=== PATIENT | male | born 1980 | race Caucasian/White ===

== ENCOUNTER → 2017-04-27 | Outpatient (CLI) | payer MEDICAID | LOC: FCPNEURO 21:00 | PROVIDERS: ATTEND Student in an Organized Health Care Education/Training Program | DX: G47.33 Obstructive sleep apnea (adult) (pediatric) (principal); G47.31 Primary central sleep apnea; R09.02 Hypoxemia ==

== ENCOUNTER 2017-07-11 14:22 | Emergency (ER) | payer MEDICAID ==
[2017-07-11 14:35] VITALS: BP 127/90; PULSE 84; RESP 18; TEMP 97.9; O2SAT 95
--- NOTE | 2017-07-11 15:10 | EDPHY ---
H & P Stated Complaint: R Knee Pain x 3 months Time Seen by Provider: 07/11/17 15:00 HPI/ROS: CHIEF COMPLAINT: Right knee pain HISTORY OF PRESENT ILLNESS: The patient is a 37-year-old healthy man who comes to the emergency department complaining of chronic knee pain that is been nagging him over the last 6 months. He states that it is intermittent. He states that it was severe while he was driving here but then resolved once he got to the emergency department waiting room. He is now ambulate that difficulty. He states that it occasionally locks. He does not remember any specific injury or trauma. He denies any swelling or erythema. The no other joint pains. He states that he was seen at an urgent care 2 days ago and they performed x-rays that were read as negative. No low back pain or hip pain. REVIEW OF SYSTEMS: Constitutional: denies: chills, fever, recent illness, recent injury EENTM: denies: blurred vision, double vision, nose congestion Respiratory: denies: cough, shortness of breath Cardiac: denies: chest pain, irregular heart rate, lightheadedness, palpitations Gastrointestinal/Abdominal: denies: abdominal pain, diarrhea, nausea, vomiting, blood streaked stools Genitourinary: denies: dysuria, frequency, hematuria, pain Musculoskeletal: See HPI Skin: denies: lesions, rash, jaundice, bruising Neurological: denies: headache, numbness, paresthesia, tingling, dizziness, weakness Hematologic/Lymphatic: denies: blood clots, easy bleeding, easy bruising Immunologic/allergic: denies: HIV/AIDS, transplant EXAM: GENERAL: Well-appearing, well-nourished and in no acute distress. HEAD: Atraumatic, normocephalic. EYES: Pupils equal round and reactive to light, extraocular movements intact, sclera anicteric, conjunctiva are normal. ENT: TMs normal, nares patent, oropharynx clear without exudates. Moist mucous membranes. NECK: Normal range of motion, supple without lymphadenopathy or JVD. LUNGS: Breath sounds clear to auscultation bilaterally and equal. No wheezes rales or rhonchi. HEART: Regular rate and rhythm without murmurs, rubs or gallops. ABDOMEN: Soft, nontender, normoactive bowel sounds. No guarding, no rebound. No masses appreciated. BACK: No CVA tenderness, no spinal tenderness, step-offs or deformities EXTREMITIES: Normal range of motion, no pitting or edema. No clubbing or cyanosis. No laxity with anterior-posterior trauma, no significant pain with axial loading or rotation. NEUROLOGICAL: Cranial nerves II through XII grossly intact. Normal speech, normal gait. 5/5 strength, normal movement in all extremities, normal sensation PSYCH: Normal mood, normal affect. SKIN: Warm, dry, normal turgor, no visible rashes or lesions. Source: Patient Exam Limitations: No limitations - Personal History Current Tetanus/Diphtheria Vaccine: Unsure Current Tetanus Diphtheria and Acellular Pertussis (TDAP): Unsure - Medical/Surgical History Hx Asthma: Yes Hx Chronic Respiratory Disease: No Hx Diabetes: No Hx Cardiac Disease: No Hx Renal Disease: No Hx Cirrhosis: No Hx Alcoholism: No Hx HIV/AIDS: No Hx Splenectomy or Spleen Trauma: No Other PMH: denies - Family History Significant Family History: No pertinent family hx - Social History Smoking Status: Never smoked Alcohol Use: Sober Constitutional: Initial Vital Signs Temperature (C) 36.6 C 07/11/17 14:33 Heart Rate 84 07/11/17 14:33 Respiratory Rate 18 07/11/17 14:33 Blood Pressure 127/90 H 07/11/17 14:33 O2 Sat (%) 95 07/11/17 14:33 O2 Delivery Mode Room Air Allergies/Adverse Reactions: No Known Allergies Allergy (Unverified 07/11/17 14:35) Home Medications: Medication Instructions Recorded NK [No Known Home Meds] 07/11/17 Medical Decision Making ED Course/Re-evaluation: I suspect that the patient may have a meniscus injury. I recommended that he follow up with Orthopedics for MRI versus scope. He is happy with this plan but is requesting a referral. I will have case management speak with him as well because he recently received Medicaid. The patient declines prescription pain medications. Differential Diagnosis: Partial list of the Differential diagnosis considered include but were not limited to; meniscus injury, ligamentous injury, fracture and although unlikely based on the history and physical exam, I also considered dislocation, infection, gout, arthritis, hip injury, radiculopathy. I discussed these differential diagnoses and the plan with the patient as well as the usual and expected course. The patient understands that the diagnosis is provisional and that in medicine we are not always correct and that further workup is often warranted. Usual and customary warnings were given. All of the patient's questions were answered. The patient was instructed to return to the emergency department should the symptoms at all worsen or return, otherwise to followup with the physician as we discussed. Departure - Departure Disposition: Home, Routine, Self-Care Clinical Impression: Right knee pain Qualifiers: Chronicity: chronic Qualified Code(s): M25.561 - Pain in right knee; G89.29 - Other chronic pain; G89.29 - Other chronic pain Condition: Fair Instructions: Knee Pain (ED) Referrals: Curtis Senior MD [Medical Doctor] - 2-3 days, call for appt.
== END 2017-07-11 15:21 | disposition home or self-care (01) ==
DX: M25.561 Pain in right knee (principal); G89.29 Other chronic pain; J45.909 Unspecified asthma, uncomplicated

== ENCOUNTER 2017-07-23 06:07 | Emergency (ER) | payer SELFPAY ==
[2017-07-23 06:14] VITALS: BP 111/89; PULSE 88; RESP 16; TEMP 98.2; O2SAT 96
--- NOTE | 2017-07-23 07:02 | EDPHY ---
H & P Stated Complaint: Leg pain, knee pain, anxiety Time Seen by Provider: 07/23/17 06:37 HPI/ROS: HPI The patient presents with pain in both of his legs that awoke him from sleep. He has had difficulty with insomnia for the last many nights. He awoke this morning with bilateral calf pain which felt like a cramp in nature which made it difficult for him to walk. He was eventually able to walk and his symptoms subsided. He is concerned because he has not been sleeping well and has been dealing with anxiety for about 6 months now. He is someone who does not like to seek medical care unless absolutely necessary. He denies any suicidality or homicidality. He has never been on any psychiatric medications and does not really believe in medications. He reports anxiety over the fact that he may have a meniscal injury to his knee. He has been followed by Orthopedics and is awaiting an MRI off her is a pride.. REVIEW OF SYSTEMS Constitutional: No fever, no chills. Eyes: No discharge. ENT: No sore throat. Cardiovascular: No chest pain, no palpitations. Respiratory: No cough, no shortness of breath. Gastrointestinal: No abdominal pain, no vomiting. Genitourinary: No hematuria. Musculoskeletal: No back pain. Skin: No rashes. Neurological: No headache. PMHx: Recent right knee injury Soc Hx: Housed with roommates, uses marijuana and alcohol occasionally PHYSICAL General Appearance: Alert, anxious and tearful Eyes: Pupils equal and round no pallor or injection ENT, Mouth: Mucous membranes moist Respiratory: There are no retractions, lungs are clear to auscultation Cardiovascular: Regular rate and rhythm Gastrointestinal: Abdomen is soft and non-tender, no masses, bowel sounds normal Neurological: A&O, moves all extremities Skin: Warm and dry, no rashes Musculoskeletal: Neck is supple non tender Extremities: symmetrical, full range of motion Psychiatric: Patient is oriented X 3, there is no agitation Source: Patient Exam Limitations: No limitations - Personal History Current Tetanus/Diphtheria Vaccine: Yes Current Tetanus Diphtheria and Acellular Pertussis (TDAP): Yes - Medical/Surgical History Hx Asthma: No Hx Chronic Respiratory Disease: No Hx Diabetes: No Hx Cardiac Disease: No Hx Renal Disease: No Hx Cirrhosis: No Hx Alcoholism: No Hx HIV/AIDS: No Hx Splenectomy or Spleen Trauma: No Other PMH: denies - Social History Smoking Status: Never smoked Constitutional: Initial Vital Signs Temperature (C) 36.8 C 07/23/17 06:11 Heart Rate 88 07/23/17 06:11 Respiratory Rate 16 07/23/17 06:11 Blood Pressure 111/89 H 07/23/17 06:11 O2 Sat (%) 96 07/23/17 06:11 O2 Delivery Mode Room Air Allergies/Adverse Reactions: No Known Allergies Allergy (Unverified 07/23/17 06:11) Home Medications: Medication Instructions Recorded NK [No Known Home Meds] 07/11/17 Medical Decision Making Differential Diagnosis: This is a 37-year-old healthy male who was recently diagnosed with likely meniscal tear after being seen in the emergency department who presents with leg cramps bilaterally that awoke him from sleep. These made it difficult for him to stand and he was quite concerned. He is feeling much better now. He is also quite upset and is suffering from insomnia as well as anxiety. He says he has had symptoms for at least 6 months. He says he is going through a lot of social stressors currently. His cultural beliefs system shies away from seeking mental health help when needed. He does now realized that he would benefit from mental health resources. He denies any suicidal or homicidal ideations whatsoever. I have him speak with the mental health worker to obtain resources for his mental health. As far as his leg ramping I feel these are benign. He does have chronic right-sided knee pain though has follow-up with Dr. Clark and is planning on an MRI. Departure - Departure Disposition: Home, Routine, Self-Care Clinical Impression: Insomnia, Cramp and spasm Condition: Good Instructions: Anxiety (ED) Additional Instructions: Please return to the emergency department if your feeling worse in any way. I recommend that you follow up with your orthopedist for your MRI. Please continue to drink plenty of fluids and maintain a healthy diet. Referrals: [facility],. [Clinic] - As per Instructions
== END 2017-07-23 07:21 | disposition home or self-care (01) ==
DX: G47.00 Insomnia, unspecified (principal); R25.2 Cramp and spasm